=== PATIENT | male | born 1960 | race Caucasian/White ===

== ENCOUNTER → 2017-12-22 08:43 | Outpatient (CLI) | payer SELFPAY ==
[2015-11-05 11:16] VITALS: BMI 38.8
[~2017-12-22 08:43] MED LIST: CLARITIN 10 MG10 MG PO; EXPECTORANT
== END | disposition home or self-care (01) ==
LOC: D.CT 08:43
DX: R10.9 Unspecified abdominal pain (principal)

== ENCOUNTER → 2018-07-23 08:27 | Outpatient (CLI) | payer OTHER ==
[2015-11-05 11:16] VITALS: BMI 38.8
--- NOTE | ~2018-07-23 | HEMODYNAMI ---
PATIENT:HECTOR JEFFERS MEDICAL RECORD: [id number] : 62 LOCATION:[facility] ADMISSION DATE: 07/23/18 Generatedon:07/23/20189:30 Patient name: HECTOR JEFFERS Patient #: [id number] SSN: : 1960 Date of study: 07/23/2018 Page: Of Hemodynamic Procedure Report Patient Data Patient Demographics Procedure consent was obtained First Name: HECTOR Gender: Male Last Name: ZEYAD : 1960 Middle Initial: A Age: 57 year(s) Patient #: [id number] Race: Unknown Additional ID: [id number] Contact details [address]: [address] [place] [address] State: [place] City: [place] Zip code: [address] Past Medical History Allergies: No known allergies Admission Admission Data Admission Date: 07/23/2018 Admission Time: 8:27 Procedure Procedure Types Cath Procedure Peripheral Cath Diagnostic Procedure Miscellaneous Epidural Steroid Injection Procedure Description Procedure Date Procedure Date: 07/23/2018 Procedure Start Time: 9:18 Procedure Staff Name Function Marc Cox MD Performing Physician Ryan Carter RT Monitor Fawn Aguero RT Scrub Jessica Bourne RN Nurse Procedure Data Cath Procedure Fluoroscopy Diagnostic fluoroscopy Total fluoroscopy Time: 0.1 time: 0.1 min min Diagnostic fluoroscopy Total fluoroscopy dose: 2 dose: 2 mGy mGy Hemodynamics Rest Pre Cath Intra NCS Post Cath Procedure Log Time Note 8:57:35 Ryan Carter RT (R) (CV) sent for patient. Start room use. 8:57:52 Patient received from Outpatients to IR Alert and oriented. Tansferred to table in Prone position. 8:57:53 Correct patient and procedure confirmed by team. 8:57:55 Signed procedure consent form obtained from patient. 8:57:56 8:57:58 Pre-procedure instructions explained to patient. 8:57:58 Pre-op teaching completed and patient verbalized understanding. 8:58:02 8:58:18 Patient allergic to No known allergies 8:58:25 Is patient on blood thinner?No 8:58:37 Lumbar area was prepped with betadine and draped in sterile fashion 9:17:31 Physician arrived 9:17:32 --------ALL STOP TIME OUT------ 9:17:33 Final Timeout: patient, procedure, and site verified with staff and physician. All members of the team are in agreement. 9:17:39 Lumbar site verified by team. 9:17:46 Sedation plan: Local Anesthetic Medication:Lidocaine 9:18:02 Procedure started. 9:18:02 Full Disclosure recording started 9:18:09 Local anesthetic to Lumbar area with Lidocaine 1% by Marc Cox MD.INITIAL ACCESS ONLY 9:27:52 Procedure ended.(Physican Out) 9:28:19 Fluoroscopy time 00.10 minutes. 9:28:24 Fluoroscopy dose: 2 mGy 9:28:24 Flurop Dose total: 2 9:28:27 Sharps counted by scrub and verified by R.N. 9:29:43 BANDAIDE APPLIED SITE STABLE POST INSTRUCTIONS GIVEN TO PT VERBALLY AND HE UNDERSTANDS PT WILL BE PLACED IN WAITING ROOM AND LET GO IN 30 MINUTES Signature Audit Maddock Stage Time Signature Unsigned Intra-Procedure 07/23/2018 Ryan 9:30:14 AM Raul RT (R) (CV) Signatures Monitor : Ryan Signature : Raul RT Date : Time : [facility] [address] [place] [address]
== END | disposition home or self-care (01) ==
LOC: D.RAD 08:27 → D.SP 09:00
DX: M47.816 Spondylosis without myelopathy or radiculopathy, lumbar region (principal)